=== PATIENT | female | born 1980 | race Caucasian/White ===

== ENCOUNTER → 2020-02-02 | Outpatient (CLI) | payer OTHER ==
[2019-07-28 11:00] VITALS: BP 97/53
[~2020-02-02] MED LIST: BUTA1CAP31 PO; LEVE500T56 PO; Lexapro PO; MELO15TA23 PO
== END ==
LOC: LAB 15:22
PROVIDERS: ATTEND Obstetrics & Gynecology
DX: N93.9 Abnormal uterine and vaginal bleeding, unspecified (principal)
CPT/HCPCS: 36415; 84702